=== PATIENT | male | born 1975 | race Caucasian/White ===

== ENCOUNTER → 2024-03-15 06:33 | Day surgery (SDC) | payer BC, SELFPAY | LOC: GI 06:33 | PROVIDERS: ATTENDING PHYSICIAN Internal Medicine | DX: Z12.11 Encounter for screening for malignant neoplasm of colon (principal); R19.5 Other fecal abnormalities; K57.30 Diverticulosis of large intestine without perforation or abscess without bleeding; K64.8 Other hemorrhoids; K22.89 Other specified disease of esophagus; J38.2 Nodules of vocal cords; R12 Heartburn; K63.5 Polyp of colon; K29.70 Gastritis, unspecified, without bleeding | CPT/HCPCS: 45380; 43239; 88305; 88341; 88342 ==